=== PATIENT | male | born 1955 | race African-American/Black ===

== ENCOUNTER 2017-11-16 10:09 | Inpatient (IN) | payer OTHER ==
[2017-11-16 11:12] VITALS: BMI 22.6
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
[2017-11-16] MEDS ORDERED: MAGNESIUM CITRATE 300 ML BOTTLE PO PRN (12:49)
[2017-11-16] MEDS ORDERED: LOPERAMIDE HCL 2 MG CAPSULE PO PRN (12:49)
[2017-11-16] MEDS ORDERED: MAGNESIUM HYDROX 2400MG/30ML ORAL SUSPENSION 30 ML CUP PO PRN (12:49)
[2017-11-16] MEDS ORDERED: IBUPROFEN 400 MG TABLET (FP) PO PRN (12:49)
[2017-11-16] MEDS ORDERED: chlordiazePOXIDE HCL 25 MG CAPSULE PO PRN (12:49)
[2017-11-16] MEDS ORDERED: guaiFENesin/D-METHORPHAN HB 10 ML UNIT-DOSE CUPS PO PRN (12:49)
[2017-11-16] MEDS ORDERED: MAG HYDROX/AL HYDROX/SIMETH 30 ML UNIT-DOSE CUP PO PRN (12:49)
[2017-11-16] MEDS ORDERED: P-EPHED 60MG/TRIPROLIDI 2.5MG TABLET PO PRN (12:49)
[2017-11-16] MEDS ORDERED: ACETAMINOPHEN 325 MG TABLET (FP) PO PRN (12:49)
[2017-11-16] MEDS ORDERED: MENTHOL/PHENOL 1 EACH UD MM PRN (12:49)
[2017-11-16] MEDS ORDERED: NICOTINE POLACRILEX 2 MG GUM BUC PRN (12:49)
[2017-11-16] MEDS ORDERED: chlordiazePOXIDE HCL 25 MG CAPSULE PO ONE ×2 (12:55→15:45)
[2017-11-16] MEDS: GABAPENTIN 100 MG CAPSULE (FP) PO SCH ×2 (15:51→23:52)
[2017-11-16] MEDS: NICOTINE 14 MG/24 HOURS TOPICAL PATCH TD SCH (15:57)
[2017-11-16] MEDS ORDERED: INSULIN (NOVOLOG) ASPART 100 UNITS/ML 10ML VIAL ONE (17:15)
--- NOTE | 2017-11-16 17:33 | CONSULT ---
[facility] Psychiatric Consult - Data Date of interview: 11/16/17 Admission source: [facility] Identifying data: Pt is a 62 year old male with a history of substance abuse. This is patient's first admission to [facility]. Pt. admitted to for alcohol and crack dependence. Substance Abuse History: Following information confirmed with patient: moking Cessation. Smoking history: Current every day smoker. Have you smoked in the past 12 months: Yes. Aproximately how many cigarettes per day: 10. Hx Chewing Tobacco Use: No. Initiated information on smoking cessation: Yes. 'Breaking Loose' booklet given: 11/16/17. - Substance & Tx. History. Hx Alcohol Use: Yes (VODKA). Hx Substance Use: Yes (COCAINE). Substance Use Type: Alcohol, Cocaine. Hx Substance Use Treatment: Yes (LAST TX AT [facility]). Alcohol: Route: Oral Frequency: Daily. Amount used: 1 PINT VODKA Age of first use: 19. Date of Last Use: 11/13/17. Crack: Route: Smoking Frequency : Daily. Amount used: $50 Age of first use: 33. Date of Last Use: 11/13/17 Medical History: Diabetes, Hep C Psychiatric History: Pt. reports a diagnosis of schizophrenia. Reports seeing a psychiatrist for 13 years and is currently on the medication risperdal 2mg. Pt. reports last taking risperdal 2mg yesterday while at the other hospital. Pt. also states he is non compliant with his medications when using drugs. Pt. currently does not want to resume his medication. Pt. stated, " I do not want to crash by taking all these medications. i'm sleepy." Pt. denies h/o past psychiatric hospitalization and history of suicide attempt. Physical/Sexual Abuse/Trauma History: Pt. did not respond to this question. Additional Comment: Urine Drug Screen Results: AMANUEL-Cocaine, OPI-Opiates Mental Status Exam - Mental Status Exam Alert and Oriented to: Time, Place, Person Cognitive Function: Fair Patient Appearance: Unkempt Mood: Withdrawn Affect: Flat Patient Behavior: Sedated, Fatigued, Guarded Speech Pattern: Slurred Voice Loudness: Moderately Soft/Quiet Thought Process: Goal Oriented Thought Disorder: Not Present Hallucinations: Denies Suicidal Ideation: Denies Homicidal Ideation: Denies Insight/Judgement: Poor Sleep: Fair Appetite: Fair Muscle strength/Tone: Normal, Mild Hypertonicity Gait/Station: Other (Did not observe patient's gait as patient was laying in bed during interview.) Psychiatric Findings - Problem List ([place] 1, 2,3) (1) Alcohol dependence with uncomplicated withdrawal Current Visit: Yes Status: Acute (2) Cocaine dependence, uncomplicated Current Visit: Yes Status: Acute (3) Nicotine dependence Current Visit: Yes Status: Acute (4) Schizophrenia Current Visit: No Status: Suspected Comment: Self reports. - Initial Treatment Plan Initial Treatment Plan: Psychoeducation provided. Detox in progress. Pt. refuses to resume risperdal at this time.
[2017-11-16 17:35] LABS: MCH 28.9 pg (25.7-33.7); MCHC 32.4 g/dl (32.0-35.9); MEAN CELL VOLUME 89.3 fl (80-96); MEAN PLT VOLUME 8.2 fl (7.5-11.1); PLATELET COUNT 230 K/MM3 (134-434); RDW 14.2 % (11.9-15.9); WHITE BLOOD COUNT 4.9 K/mm3 (4.0-10.0)
[2017-11-16 17:41] LABS: ALBUMIN 3.4 g/dl (3.4-5.0); ANION GAP 8 (8-16); CALCIUM 8.8 mg/dL (8.5-10.1); CO2 26 mmol/L (21-32)
[2017-11-16 17:46] LABS: ALK PHOS 85 U/L (45-117); BILIRUBIN,TOTAL 0.6 mg/dL (0.2-1.0); CREATININE 0.8 mg/dL (0.7-1.3); SGOT/AST 86 U/L (15-37); SGPT/ALT 84 U/L (12-78); TOT PROT 7.3 g/dl (6.4-8.2)
[2017-11-16] MEDS: metFORMIN HCL 500 MG TABLET (FP) PO SCH (17:58)
[2017-11-16] MEDS: chlordiazePOXIDE HCL 25 MG CAPSULE PO SCH ×2 (17:58→23:52)
[2017-11-16] MEDS: INSULIN SLIDING SCALE (NOVOLOG) 1 VIAL SQ SCH (18:00)
[2017-11-16 18:30] LABS: GLUCOSE,RANDOM 302 mg/dL (74-106)
[2017-11-16] MEDS: THIAMINE HCL 100 MG TABLET (FP) PO SCH (23:52)
[2017-11-16] MEDS: INSULIN DETEMIR 100 UNITS/ML MDV SQ SCH (23:52)
[2017-11-17 01:23] LABS: URINE APPEARANCE CLEAR; URINE BILIRUBIN NEGATIVE (NEGATIVE); URINE BLOOD NEGATIVE (NEGATIVE); URINE COLOR YELLOW; URINE GLUCOSE (UA) 3+ (NEGATIVE); URINE KETONE NEGATIVE (NEGATIVE); URINE LEUK ESTERASE NEGATIVE (NEGATIVE); URINE NITRITE NEGATIVE (NEGATIVE); URINE PROTEIN NEGATIVE (NEGATIVE)
[2017-11-17] MEDS: GABAPENTIN 100 MG CAPSULE (FP) PO SCH ×3 (06:17→22:47)
[2017-11-17] MEDS: chlordiazePOXIDE HCL 25 MG CAPSULE PO SCH ×4 (06:45→22:47)
[2017-11-17] MEDS ORDERED: INSULIN (NOVOLOG) ASPART 100 UNITS/ML 10ML VIAL ONE ×2 (08:18→16:53)
[2017-11-17] MEDS: INSULIN SLIDING SCALE (NOVOLOG) 1 VIAL SQ SCH ×2 (08:19→17:28)
[2017-11-17] MEDS: metFORMIN HCL 500 MG TABLET (FP) PO SCH ×2 (08:19→17:28)
[2017-11-17 09:14] LABS: HIV 1 & 2 AB NEGATIVE; HIV 1 AGp24 NEGATIVE
--- NOTE | 2017-11-17 09:29 | PN ---
[facility] CIWA - CIWA Score Nausea/Vomitin-No Nausea/No Vomiting Muscle Tremors: 4-Moderate,w/Arms Extend Anxiety: 4-Mod. Anxious/Guarded Agitation: 4-Moderately Restless Paroxysmal Sweats: 3 Orientation: 0-Oriented Tacttile Disturbances: 0-None Auditory Disturbances: 0-None Visual Disturbances: 0-None Headache: 1-Very Mild CIWA-Ar Total Score: 16 BHS Progress Note (SOAP) Subjective: sweats shakes interrupted sleep agitation irritable Objective: 11/17/17 09:27 Vital Signs Temperature 97.3 F L 11/17/17 06:28 Pulse Rate 65 11/17/17 06:28 Respiratory Rate 16 11/17/17 06:28 Blood Pressure 110/50 11/17/17 06:28 O2 Sat by Pulse Oximetry (%) Laboratory Tests 11/16/17 11/16/17 11/16/17 11:33 14:00 14:00 WBC 4.9 RBC 4.19 Hgb 12.1 Hct 37.4 MCV 89.3 MCH 28.9 MCHC 32.4 RDW 14.2 Plt Count 230 MPV 8.2 Sodium Potassium Chloride Carbon Dioxide Anion Gap BUN Creatinine Creat Clearance w eGFR POC Glucometer 379 Random Glucose Calcium Total Bilirubin AST ALT Alkaline Phosphatase Total Protein Albumin Urine Color Urine Appearance Urine pH Ur Specific [place] Urine Protein Urine Glucose (UA) Urine Ketones Urine Blood Urine Nitrite Urine Bilirubin Urine Urobilinogen HIV 1&2 Antibody Screen Negative HIV P24 Antigen Negative 11/16/17 11/16/17 11/16/17 14:00 15:55 16:31 WBC RBC Hgb Hct MCV MCH MCHC RDW Plt Count MPV Sodium 141 Potassium 4.6 Chloride 107 Carbon Dioxide 26 Anion Gap 8 BUN 13 Creatinine 0.8 Creat Clearance w eGFR > 60 POC Glucometer 280 302 Random Glucose 302 H* Calcium 8.8 Total Bilirubin 0.6 AST 86 H ALT 84 H Alkaline Phosphatase 85 Total Protein 7.3 Albumin 3.4 Urine Color Urine Appearance Urine pH Ur Specific [place] Urine Protein Urine Glucose (UA) Urine Ketones Urine Blood Urine Nitrite Urine Bilirubin Urine Urobilinogen HIV 1&2 Antibody Screen HIV P24 Antigen 11/16/17 11/16/17 11/17/17 21:54 23:37 07:21 WBC RBC Hgb Hct MCV MCH MCHC RDW Plt Count MPV Sodium Potassium Chloride Carbon Dioxide Anion Gap BUN Creatinine Creat Clearance w eGFR POC Glucometer 132 260 Random Glucose Calcium Total Bilirubin AST ALT Alkaline Phosphatase Total Protein Albumin Urine Color Yellow Urine Appearance Clear Urine pH 5.0 Ur Specific [place] 1.030 Urine Protein Negative Urine Glucose (UA) 3+ H Urine Ketones Negative Urine Blood Negative Urine Nitrite Negative Urine Bilirubin Negative Urine Urobilinogen 2.0 HIV 1&2 Antibody Screen HIV P24 Antigen [id number] lying in bed no acute distress Assessment: 11/17/17 09:29 withdrawal sx Plan: continue detox increase fluids labs pending
[2017-11-17] MEDS: PRENATAL VITAMINS W/ FOLIC ACID TABLET (FP) PO SCH (10:29)
[2017-11-17] MEDS: NICOTINE 14 MG/24 HOURS TOPICAL PATCH TD SCH (10:29)
[2017-11-17] MEDS: ASPIRIN 81 MG CHEWABLE TABLETS PO SCH (10:29)
[2017-11-17] MEDS ORDERED: FLU VACCINE QUAD 60 MCG/0.5 ML (MDV 17-18) IM ONE (12:00)
[2017-11-17 13:12] LABS: URINE LEUK ESTERASE Negative (NEGATIVE)
--- NOTE | 2017-11-17 16:37 | EKG ---
Test Reason : Blood Pressure : / mmHG Vent. Rate : 070 BPM Atrial Rate : 070 BPM P-R Int : 146 ms QRS Dur : 088 ms QT Int : 412 ms P-R-T Axes : 076 -53 084 degrees QTc Int : 444 ms NORMAL SINUS RHYTHM POSSIBLE LEFT ATRIAL ENLARGEMENT LEFT ANTERIOR FASCICULAR BLOCK ABNORMAL ECG NO PREVIOUS ECGS AVAILABLE Confirmed by MARYAM YANEZ MD ([id number]) on 11/17/2017 4:36:45 PM Referred By: Confirmed By:MARYAM YANEZ MD
[2017-11-17] MEDS: INSULIN DETEMIR 100 UNITS/ML MDV SQ SCH (22:46)
[2017-11-17] MEDS: THIAMINE HCL 100 MG TABLET (FP) PO SCH (22:47)
[2017-11-18] MEDS: metFORMIN HCL 500 MG TABLET (FP) PO SCH ×2 (06:08→17:15)
[2017-11-18] MEDS: GABAPENTIN 100 MG CAPSULE (FP) PO SCH ×3 (06:08→23:39)
[2017-11-18] MEDS: chlordiazePOXIDE HCL 25 MG CAPSULE PO SCH ×2 (06:09→10:12)
[2017-11-18] MEDS ORDERED: DIPHENOXYLATE 2.5/ATROPINE.025 1 COMBO TABLET PO ONE (07:00)
[2017-11-18] MEDS: INSULIN SLIDING SCALE (NOVOLOG) 1 VIAL SQ SCH ×2 (07:17→17:15)
[2017-11-18] MEDS: ASPIRIN 81 MG CHEWABLE TABLETS PO SCH (10:12)
[2017-11-18] MEDS: PRENATAL VITAMINS W/ FOLIC ACID TABLET (FP) PO SCH (10:12)
[2017-11-18] MEDS: NICOTINE 14 MG/24 HOURS TOPICAL PATCH TD SCH (10:14)
[2017-11-18] MEDS ORDERED: INSULIN (NOVOLOG) ASPART 100 UNITS/ML 10ML VIAL ONE (11:57)
--- NOTE | 2017-11-18 12:07 | PN ---
[facility] CIWA - CIWA Score Nausea/Vomitin-No Nausea/No Vomiting Muscle Tremors: 3 Anxiety: 3 Agitation: 3 Paroxysmal Sweats: 3 Orientation: 0-Oriented Tacttile Disturbances: 0-None Auditory Disturbances: 0-None Visual Disturbances: 0-None Headache: 0-None Present CIWA-Ar Total Score: 12 S Progress Note (SOAP) Subjective: irritable sweats diarrhea agitation Objective: 11/18/17 12:06 Vital Signs Temperature 96.6 F L 11/18/17 10:14 Pulse Rate 69 11/18/17 10:14 Respiratory Rate 18 11/18/17 10:14 Blood Pressure 117/56 11/18/17 10:14 O2 Sat by Pulse Oximetry (%) Laboratory Tests 11/16/17 11/16/17 11/16/17 11:33 14:00 14:00 WBC 4.9 RBC 4.19 Hgb 12.1 Hct 37.4 MCV 89.3 MCH 28.9 MCHC 32.4 RDW 14.2 Plt Count 230 MPV 8.2 Sickle Cell Screen Sodium Potassium Chloride Carbon Dioxide Anion Gap BUN Creatinine Creat Clearance w eGFR POC Glucometer 379 Random Glucose Calcium Total Bilirubin AST ALT Alkaline Phosphatase Total Protein Albumin Urine Color Urine Appearance Urine pH Ur Specific [place] Urine Protein Urine Glucose (UA) Urine Ketones Urine Blood Urine Nitrite Urine Bilirubin Urine Urobilinogen Ur Leukocyte Esterase RPR Titer HIV 1&2 Antibody Screen Negative HIV P24 Antigen Negative 11/16/17 11/16/17 11/16/17 14:00 14:00 15:55 WBC RBC Hgb Hct MCV MCH MCHC RDW Plt Count MPV Sickle Cell Screen Sodium 141 Potassium 4.6 Chloride 107 Carbon Dioxide 26 Anion Gap 8 BUN 13 Creatinine 0.8 Creat Clearance w eGFR > 60 POC Glucometer 280 Random Glucose 302 H* Calcium 8.8 Total Bilirubin 0.6 AST 86 H ALT 84 H Alkaline Phosphatase 85 Total Protein 7.3 Albumin 3.4 Urine Color Urine Appearance Urine pH Ur Specific [place] Urine Protein Urine Glucose (UA) Urine Ketones Urine Blood Urine Nitrite Urine Bilirubin Urine Urobilinogen Ur Leukocyte Esterase RPR Titer Nonreactive HIV 1&2 Antibody Screen HIV P24 Antigen 11/16/17 11/16/17 11/16/17 16:31 21:54 23:37 WBC RBC Hgb Hct MCV MCH MCHC RDW Plt Count MPV Sickle Cell Screen Sodium Potassium Chloride Carbon Dioxide Anion Gap BUN Creatinine Creat Clearance w eGFR POC Glucometer 302 132 Random Glucose Calcium Total Bilirubin AST ALT Alkaline Phosphatase Total Protein Albumin Urine Color Yellow Urine Appearance Clear Urine pH 5.0 Ur Specific [place] 1.030 Urine Protein Negative Urine Glucose (UA) 3+ H Urine Ketones Negative Urine Blood Negative Urine Nitrite Negative Urine Bilirubin Negative Urine Urobilinogen 2.0 Ur Leukocyte Esterase Negative RPR Titer HIV 1&2 Antibody Screen HIV P24 Antigen 11/17/17 11/17/17 11/17/17 06:00 07:21 16:50 WBC RBC Hgb Hct MCV MCH MCHC RDW Plt Count MPV Sickle Cell Screen Negative Sodium Potassium Chloride Carbon Dioxide Anion Gap BUN Creatinine Creat Clearance w eGFR POC Glucometer 260 265 Random Glucose Calcium Total Bilirubin AST ALT Alkaline Phosphatase Total Protein Albumin Urine Color Urine Appearance Urine pH Ur Specific [place] Urine Protein Urine Glucose (UA) Urine Ketones Urine Blood Urine Nitrite Urine Bilirubin Urine Urobilinogen Ur Leukocyte Esterase RPR Titer HIV 1&2 Antibody Screen HIV P24 Antigen 11/17/17 11/18/17 23:18 06:00 WBC RBC Hgb Hct MCV MCH MCHC RDW Plt Count MPV Sickle Cell Screen Sodium Potassium Chloride Carbon Dioxide Anion Gap BUN Creatinine Creat Clearance w eGFR POC Glucometer 175 187 Random Glucose Calcium Total Bilirubin AST ALT Alkaline Phosphatase Total Protein Albumin Urine Color Urine Appearance Urine pH Ur Specific [place] Urine Protein Urine Glucose (UA) Urine Ketones Urine Blood Urine Nitrite Urine Bilirubin Urine Urobilinogen Ur Leukocyte Esterase RPR Titer HIV 1&2 Antibody Screen HIV P24 Antigen aaox3 ambulating no acute distress Assessment: 11/18/17 12:06 withdrawal sx Plan: continue detox increase fluids anti-diarrhea medication prn
[2017-11-18] MEDS ORDERED: INSULIN (NOVOLOG) ASPART 100 UNITS/ML 10ML VIAL SQ ONE (13:30)
[2017-11-18] MEDS: chlordiazePOXIDE 5 MG CAPSULE PO SCH (17:22)
[2017-11-18] MEDS: INSULIN DETEMIR 100 UNITS/ML MDV SQ SCH (23:39)
[2017-11-18] MEDS: THIAMINE HCL 100 MG TABLET (FP) PO SCH (23:39)
[2017-11-19] MEDS: INSULIN SLIDING SCALE (NOVOLOG) 1 VIAL SQ SCH ×4 (01:40→22:53)
[2017-11-19] MEDS: chlordiazePOXIDE 5 MG CAPSULE PO SCH ×3 (06:07→10:25)
[2017-11-19] MEDS: GABAPENTIN 100 MG CAPSULE (FP) PO SCH ×3 (06:08→22:53)
[2017-11-19] MEDS: metFORMIN HCL 500 MG TABLET (FP) PO SCH ×2 (07:09→17:29)
[2017-11-19] MEDS: PRENATAL VITAMINS W/ FOLIC ACID TABLET (FP) PO SCH (10:23)
[2017-11-19] MEDS: ASPIRIN 81 MG CHEWABLE TABLETS PO SCH (10:23)
[2017-11-19] MEDS: NICOTINE 14 MG/24 HOURS TOPICAL PATCH TD SCH (10:24)
--- NOTE | 2017-11-19 12:25 | PN ---
BHS Progress Note (SOAP) Subjective: Sweating,interrupted sleep,restless Objective: 11/19/17 12:24 Vital Signs - 8 hr 11/19/17 06:13 Temperature 98.4 F Pulse Rate 62 Respiratory 16 Rate Blood Pressure 116/54 Laboratory Last Values WBC 4.9 K/mm3 (4.0-10.0) 11/16/17 14:00 RBC 4.19 M/mm3 (4.00-5.60) 11/16/17 14:00 Hgb 12.1 GM/dL (11.7-16.9) 11/16/17 14:00 Hct 37.4 % (35.4-49) 11/16/17 14:00 MCV 89.3 fl (80-96) 11/16/17 14:00 MCH 28.9 pg (25.7-33.7) 11/16/17 14:00 MCHC 32.4 g/dl (32.0-35.9) 11/16/17 14:00 RDW 14.2 % (11.9-15.9) 11/16/17 14:00 Plt Count 230 K/MM3 (134-434) 11/16/17 14:00 MPV 8.2 fl (7.5-11.1) 11/16/17 14:00 Sickle Cell Screen Negative (NEGATIVE) 11/17/17 06:00 Sodium 141 mmol/L (136-145) 11/16/17 14:00 Potassium 4.6 mmol/L (3.5-5.1) 11/16/17 14:00 Chloride 107 mmol/L (98-107) 11/16/17 14:00 Carbon Dioxide 26 mmol/L (21-32) 11/16/17 14:00 Anion Gap 8 (8-16) 11/16/17 14:00 BUN 13 mg/dL (7-18) 11/16/17 14:00 Creatinine 0.8 mg/dL (0.7-1.3) 11/16/17 14:00 Creat Clearance w eGFR > 60 (>60) 11/16/17 14:00 POC Glucometer 234 UNITS (80-120) 11/18/17 23:37 Random Glucose 302 mg/dL (74-106) H* 11/16/17 14:00 Calcium 8.8 mg/dL (8.5-10.1) 11/16/17 14:00 Total Bilirubin 0.6 mg/dL (0.2-1.0) 11/16/17 14:00 AST 86 U/L (15-37) H 11/16/17 14:00 ALT 84 U/L (12-78) H 11/16/17 14:00 Alkaline Phosphatase 85 U/L (45-117) 11/16/17 14:00 Total Protein 7.3 g/dl (6.4-8.2) 11/16/17 14:00 Albumin 3.4 g/dl (3.4-5.0) 11/16/17 14:00 Urine Color Yellow 11/16/17 21:54 Urine Appearance Clear 11/16/17 21:54 Urine pH 5.0 (5.0-8.0) 11/16/17 21:54 Ur Specific [place] 1.030 (1.001-1.035) 11/16/17 21:54 Urine Protein Negative (NEGATIVE) 11/16/17 21:54 Urine Glucose (UA) 3+ (NEGATIVE) H 11/16/17 21:54 Urine Ketones Negative (NEGATIVE) 11/16/17 21:54 Urine Blood Negative (NEGATIVE) 11/16/17 21:54 Urine Nitrite Negative (NEGATIVE) 11/16/17 21:54 Urine Bilirubin Negative (NEGATIVE) 11/16/17 21:54 Urine Urobilinogen 2.0 mg/dL (0.2-1.0) 11/16/17 21:54 Ur Leukocyte Esterase Negative (NEGATIVE) 11/16/17 21:54 RPR Titer Nonreactive (NONREACTIVE) 11/16/17 14:00 HIV 1&2 Antibody Screen Negative 11/16/17 14:00 HIV P24 Antigen Negative 11/16/17 14:00 labs noted Assessment: 11/19/17 12:25 Withdrawal sx. Plan: Continue detox
[2017-11-19] MEDS ORDERED: INSULIN (NOVOLOG) ASPART 100 UNITS/ML 10ML VIAL ONE (13:47)
[2017-11-19] MEDS: chlordiazePOXIDE HCL 10 MG CAPSULE PO SCH ×3 (17:28→22:53)
[2017-11-19] MEDS: THIAMINE HCL 100 MG TABLET (FP) PO SCH (22:53)
[2017-11-19] MEDS: INSULIN DETEMIR 100 UNITS/ML MDV SQ SCH (22:53)
[2017-11-20] MEDS: GABAPENTIN 100 MG CAPSULE (FP) PO SCH ×3 (06:38→22:38)
[2017-11-20] MEDS: metFORMIN HCL 500 MG TABLET (FP) PO SCH ×2 (06:39→17:32)
[2017-11-20] MEDS: chlordiazePOXIDE HCL 10 MG CAPSULE PO SCH ×2 (07:37→11:46)
[2017-11-20] MEDS ORDERED: INSULIN (NOVOLOG) ASPART 100 UNITS/ML 10ML VIAL ONE ×2 (07:41→11:26)
[2017-11-20] MEDS: INSULIN SLIDING SCALE (NOVOLOG) 1 VIAL SQ SCH ×4 (07:41→22:38)
[2017-11-20] MEDS: NICOTINE 14 MG/24 HOURS TOPICAL PATCH TD SCH (11:44)
[2017-11-20] MEDS: PRENATAL VITAMINS W/ FOLIC ACID TABLET (FP) PO SCH (11:45)
[2017-11-20] MEDS: ASPIRIN 81 MG CHEWABLE TABLETS PO SCH (11:45)
--- NOTE | 2017-11-20 14:47 | PN ---
BHS Progress Note (SOAP) Subjective: Sweating,anxiety,tremors,interrupted sleep,restless Objective: 11/20/17 14:46 Vital Signs - 8 hr 11/20/17 11/20/17 11/20/17 07:01 11:49 14:11 Temperature 98.3 F 97.7 F 98 F Pulse Rate 65 73 80 Respiratory 16 18 18 Rate Blood Pressure 108/51 114/60 129/66 Laboratory Last Values WBC 4.9 K/mm3 (4.0-10.0) 11/16/17 14:00 RBC 4.19 M/mm3 (4.00-5.60) 11/16/17 14:00 Hgb 12.1 GM/dL (11.7-16.9) 11/16/17 14:00 Hct 37.4 % (35.4-49) 11/16/17 14:00 MCV 89.3 fl (80-96) 11/16/17 14:00 MCH 28.9 pg (25.7-33.7) 11/16/17 14:00 MCHC 32.4 g/dl (32.0-35.9) 11/16/17 14:00 RDW 14.2 % (11.9-15.9) 11/16/17 14:00 Plt Count 230 K/MM3 (134-434) 11/16/17 14:00 MPV 8.2 fl (7.5-11.1) 11/16/17 14:00 Sickle Cell Screen Negative (NEGATIVE) 11/17/17 06:00 Sodium 141 mmol/L (136-145) 11/16/17 14:00 Potassium 4.6 mmol/L (3.5-5.1) 11/16/17 14:00 Chloride 107 mmol/L (98-107) 11/16/17 14:00 Carbon Dioxide 26 mmol/L (21-32) 11/16/17 14:00 Anion Gap 8 (8-16) 11/16/17 14:00 BUN 13 mg/dL (7-18) 11/16/17 14:00 Creatinine 0.8 mg/dL (0.7-1.3) 11/16/17 14:00 Creat Clearance w eGFR > 60 (>60) 11/16/17 14:00 POC Glucometer 356 UNITS (80-120) 11/20/17 11:16 Random Glucose 302 mg/dL (74-106) H* 11/16/17 14:00 Calcium 8.8 mg/dL (8.5-10.1) 11/16/17 14:00 Total Bilirubin 0.6 mg/dL (0.2-1.0) 11/16/17 14:00 AST 86 U/L (15-37) H 11/16/17 14:00 ALT 84 U/L (12-78) H 11/16/17 14:00 Alkaline Phosphatase 85 U/L (45-117) 11/16/17 14:00 Total Protein 7.3 g/dl (6.4-8.2) 11/16/17 14:00 Albumin 3.4 g/dl (3.4-5.0) 11/16/17 14:00 Urine Color Yellow 11/16/17 21:54 Urine Appearance Clear 11/16/17 21:54 Urine pH 5.0 (5.0-8.0) 11/16/17 21:54 Ur Specific [place] 1.030 (1.001-1.035) 11/16/17 21:54 Urine Protein Negative (NEGATIVE) 11/16/17 21:54 Urine Glucose (UA) 3+ (NEGATIVE) H 11/16/17 21:54 Urine Ketones Negative (NEGATIVE) 11/16/17 21:54 Urine Blood Negative (NEGATIVE) 11/16/17 21:54 Urine Nitrite Negative (NEGATIVE) 11/16/17 21:54 Urine Bilirubin Negative (NEGATIVE) 11/16/17 21:54 Urine Urobilinogen 2.0 mg/dL (0.2-1.0) 11/16/17 21:54 Ur Leukocyte Esterase Negative (NEGATIVE) 11/16/17 21:54 RPR Titer Nonreactive (NONREACTIVE) 11/16/17 14:00 HIV 1&2 Antibody Screen Negative 11/16/17 14:00 HIV P24 Antigen Negative 11/16/17 14:00 labs noted Assessment: 11/20/17 14:46 Withdrawal sx. Plan: Continue detox
[2017-11-20] MEDS: INSULIN DETEMIR 100 UNITS/ML MDV SQ SCH (22:38)
[2017-11-21] MEDS ORDERED: INSULIN (NOVOLOG) ASPART 100 UNITS/ML 10ML VIAL ONE ×4 (07:57→16:48)
[2017-11-21] MEDS: GABAPENTIN 100 MG CAPSULE (FP) PO SCH ×3 (08:04→21:46)
[2017-11-21] MEDS: metFORMIN HCL 500 MG TABLET (FP) PO SCH ×2 (08:04→16:49)
[2017-11-21] MEDS: INSULIN SLIDING SCALE (NOVOLOG) 1 VIAL SQ SCH ×4 (08:04→21:44)
--- NOTE | 2017-11-21 09:16 | PN ---
S Progress Note (SOAP) Subjective: interrupted sleep, lbp, mild diarrhea Objective: 11/21/17 09:14 Vital Signs Temperature 98.2 F 11/21/17 06:27 Pulse Rate 80 11/21/17 06:27 Respiratory Rate 18 11/21/17 06:27 Blood Pressure 134/74 11/21/17 06:27 O2 Sat by Pulse Oximetry (%) Laboratory Tests 11/16/17 11/16/17 11/16/17 11:33 14:00 14:00 WBC 4.9 RBC 4.19 Hgb 12.1 Hct 37.4 MCV 89.3 MCH 28.9 MCHC 32.4 RDW 14.2 Plt Count 230 MPV 8.2 Sickle Cell Screen Sodium Potassium Chloride Carbon Dioxide Anion Gap BUN Creatinine Creat Clearance w eGFR POC Glucometer 379 Random Glucose Calcium Total Bilirubin AST ALT Alkaline Phosphatase Total Protein Albumin Urine Color Urine Appearance Urine pH Ur Specific [place] Urine Protein Urine Glucose (UA) Urine Ketones Urine Blood Urine Nitrite Urine Bilirubin Urine Urobilinogen Ur Leukocyte Esterase RPR Titer HIV 1&2 Antibody Screen Negative HIV P24 Antigen Negative 11/16/17 11/16/17 11/16/17 14:00 14:00 15:55 WBC RBC Hgb Hct MCV MCH MCHC RDW Plt Count MPV Sickle Cell Screen Sodium 141 Potassium 4.6 Chloride 107 Carbon Dioxide 26 Anion Gap 8 BUN 13 Creatinine 0.8 Creat Clearance w eGFR > 60 POC Glucometer 280 Random Glucose 302 H* Calcium 8.8 Total Bilirubin 0.6 AST 86 H ALT 84 H Alkaline Phosphatase 85 Total Protein 7.3 Albumin 3.4 Urine Color Urine Appearance Urine pH Ur Specific [place] Urine Protein Urine Glucose (UA) Urine Ketones Urine Blood Urine Nitrite Urine Bilirubin Urine Urobilinogen Ur Leukocyte Esterase RPR Titer Nonreactive HIV 1&2 Antibody Screen HIV P24 Antigen 11/16/17 11/16/17 11/16/17 16:31 21:54 23:37 WBC RBC Hgb Hct MCV MCH MCHC RDW Plt Count MPV Sickle Cell Screen Sodium Potassium Chloride Carbon Dioxide Anion Gap BUN Creatinine Creat Clearance w eGFR POC Glucometer 302 132 Random Glucose Calcium Total Bilirubin AST ALT Alkaline Phosphatase Total Protein Albumin Urine Color Yellow Urine Appearance Clear Urine pH 5.0 Ur Specific [place] 1.030 Urine Protein Negative Urine Glucose (UA) 3+ H Urine Ketones Negative Urine Blood Negative Urine Nitrite Negative Urine Bilirubin Negative Urine Urobilinogen 2.0 Ur Leukocyte Esterase Negative RPR Titer HIV 1&2 Antibody Screen HIV P24 Antigen 11/17/17 11/17/17 11/17/17 06:00 07:21 16:50 WBC RBC Hgb Hct MCV MCH MCHC RDW Plt Count MPV Sickle Cell Screen Negative Sodium Potassium Chloride Carbon Dioxide Anion Gap BUN Creatinine Creat Clearance w eGFR POC Glucometer 260 265 Random Glucose Calcium Total Bilirubin AST ALT Alkaline Phosphatase Total Protein Albumin Urine Color Urine Appearance Urine pH Ur Specific [place] Urine Protein Urine Glucose (UA) Urine Ketones Urine Blood Urine Nitrite Urine Bilirubin Urine Urobilinogen Ur Leukocyte Esterase RPR Titer HIV 1&2 Antibody Screen HIV P24 Antigen 11/17/17 11/18/17 11/18/17 23:18 06:00 11:53 WBC RBC Hgb Hct MCV MCH MCHC RDW Plt Count MPV Sickle Cell Screen Sodium Potassium Chloride Carbon Dioxide Anion Gap BUN Creatinine Creat Clearance w eGFR POC Glucometer 175 187 317 Random Glucose Calcium Total Bilirubin AST ALT Alkaline Phosphatase Total Protein Albumin Urine Color Urine Appearance Urine pH Ur Specific [place] Urine Protein Urine Glucose (UA) Urine Ketones Urine Blood Urine Nitrite Urine Bilirubin Urine Urobilinogen Ur Leukocyte Esterase RPR Titer HIV 1&2 Antibody Screen HIV P24 Antigen 11/18/17 11/18/17 11/19/17 16:30 23:37 05:46 WBC RBC Hgb Hct MCV MCH MCHC RDW Plt Count MPV Sickle Cell Screen Sodium Potassium Chloride Carbon Dioxide Anion Gap BUN Creatinine Creat Clearance w eGFR POC Glucometer 186 234 192 Random Glucose Calcium Total Bilirubin AST ALT Alkaline Phosphatase Total Protein Albumin Urine Color Urine Appearance Urine pH Ur Specific [place] Urine Protein Urine Glucose (UA) Urine Ketones Urine Blood Urine Nitrite Urine Bilirubin Urine Urobilinogen Ur Leukocyte Esterase RPR Titer HIV 1&2 Antibody Screen HIV P24 Antigen 11/19/17 11/19/17 11/20/17 11:36 16:34 06:06 WBC RBC Hgb Hct MCV MCH MCHC RDW Plt Count MPV Sickle Cell Screen Sodium Potassium Chloride Carbon Dioxide Anion Gap BUN Creatinine Creat Clearance w eGFR POC Glucometer 551 82 222 Random Glucose Calcium Total Bilirubin AST ALT Alkaline Phosphatase Total Protein Albumin Urine Color Urine Appearance Urine pH Ur Specific [place] Urine Protein Urine Glucose (UA) Urine Ketones Urine Blood Urine Nitrite Urine Bilirubin Urine Urobilinogen Ur Leukocyte Esterase RPR Titer HIV 1&2 Antibody Screen HIV P24 Antigen 11/20/17 11/20/17 11/21/17 11:16 16:25 06:35 WBC RBC Hgb Hct MCV MCH MCHC RDW Plt Count MPV Sickle Cell Screen Sodium Potassium Chloride Carbon Dioxide Anion Gap BUN Creatinine Creat Clearance w eGFR POC Glucometer 356 240 310 Random Glucose Calcium Total Bilirubin AST ALT Alkaline Phosphatase Total Protein Albumin Urine Color Urine Appearance Urine pH Ur Specific [place] Urine Protein Urine Glucose (UA) Urine Ketones Urine Blood Urine Nitrite Urine Bilirubin Urine Urobilinogen Ur Leukocyte Esterase RPR Titer HIV 1&2 Antibody Screen HIV P24 Antigen pt aox3 in nad, lying in bed 11/21/17 09:16 withdrawal sx's dm2 Assessment: 11/21/17 09:15 cont. detox increase fluids insulin coverage imodium prn d/c in am
[2017-11-21] MEDS: NICOTINE 14 MG/24 HOURS TOPICAL PATCH TD SCH (10:42)
[2017-11-21] MEDS: PRENATAL VITAMINS W/ FOLIC ACID TABLET (FP) PO SCH (10:42)
[2017-11-21] MEDS: ASPIRIN 81 MG CHEWABLE TABLETS PO SCH (10:43)
[2017-11-21] MEDS: THIAMINE HCL 100 MG TABLET (FP) PO SCH (21:46)
[2017-11-21] MEDS: INSULIN DETEMIR 100 UNITS/ML MDV SQ SCH (21:47)
[2017-11-21 21:53] VITALS: TEMP 98.2
[2017-11-22 06:07] VITALS: BP 121/57; PULSE 70
[2017-11-22] MEDS: INSULIN SLIDING SCALE (NOVOLOG) 1 VIAL SQ SCH (08:05)
[2017-11-22] MEDS: GABAPENTIN 100 MG CAPSULE (FP) PO SCH (08:05)
[2017-11-22] MEDS: metFORMIN HCL 500 MG TABLET (FP) PO SCH (08:16)
[2017-11-22] MEDS: PRENATAL VITAMINS W/ FOLIC ACID TABLET (FP) PO SCH (09:12)
[2017-11-22] MEDS: ASPIRIN 81 MG CHEWABLE TABLETS PO SCH (09:12)
--- NOTE | 2017-11-22 12:01 | DS ---
[facility] Detox Discharge Summary Admission Date: 11/16/17 - History Present History: Alcohol Dependence, Cocaine Dependence Pertinent Past History: GERD DMT2 Hepatitis C - Physical Exam Results Vital Signs: Vital Signs Temperature 98.2 F 11/22/17 06:00 Pulse Rate 70 11/22/17 06:00 Respiratory Rate 18 11/22/17 06:00 Blood Pressure 121/57 11/22/17 06:00 O2 Sat by Pulse Oximetry (%) Pertinent Admission Physical Exam Findings: Withdrawal symptoms Laboratory Tests 11/16/17 11/16/17 11/16/17 11:33 14:00 14:00 WBC 4.9 RBC 4.19 Hgb 12.1 Hct 37.4 MCV 89.3 MCH 28.9 MCHC 32.4 RDW 14.2 Plt Count 230 MPV 8.2 Sickle Cell Screen Sodium Potassium Chloride Carbon Dioxide Anion Gap BUN Creatinine Creat Clearance w eGFR POC Glucometer 379 Random Glucose Calcium Total Bilirubin AST ALT Alkaline Phosphatase Total Protein Albumin Urine Color Urine Appearance Urine pH Ur Specific [place] Urine Protein Urine Glucose (UA) Urine Ketones Urine Blood Urine Nitrite Urine Bilirubin Urine Urobilinogen Ur Leukocyte Esterase RPR Titer HIV 1&2 Antibody Screen Negative HIV P24 Antigen Negative 11/16/17 11/16/17 11/16/17 14:00 14:00 15:55 WBC RBC Hgb Hct MCV MCH MCHC RDW Plt Count MPV Sickle Cell Screen Sodium 141 Potassium 4.6 Chloride 107 Carbon Dioxide 26 Anion Gap 8 BUN 13 Creatinine 0.8 Creat Clearance w eGFR > 60 POC Glucometer 280 Random Glucose 302 H* Calcium 8.8 Total Bilirubin 0.6 AST 86 H ALT 84 H Alkaline Phosphatase 85 Total Protein 7.3 Albumin 3.4 Urine Color Urine Appearance Urine pH Ur Specific [place] Urine Protein Urine Glucose (UA) Urine Ketones Urine Blood Urine Nitrite Urine Bilirubin Urine Urobilinogen Ur Leukocyte Esterase RPR Titer Nonreactive HIV 1&2 Antibody Screen HIV P24 Antigen 11/16/17 11/16/17 11/16/17 16:31 21:54 23:37 WBC RBC Hgb Hct MCV MCH MCHC RDW Plt Count MPV Sickle Cell Screen Sodium Potassium Chloride Carbon Dioxide Anion Gap BUN Creatinine Creat Clearance w eGFR POC Glucometer 302 132 Random Glucose Calcium Total Bilirubin AST ALT Alkaline Phosphatase Total Protein Albumin Urine Color Yellow Urine Appearance Clear Urine pH 5.0 Ur Specific [place] 1.030 Urine Protein Negative Urine Glucose (UA) 3+ H Urine Ketones Negative Urine Blood Negative Urine Nitrite Negative Urine Bilirubin Negative Urine Urobilinogen 2.0 Ur Leukocyte Esterase Negative RPR Titer HIV 1&2 Antibody Screen HIV P24 Antigen 11/17/17 11/17/17 11/17/17 06:00 07:21 16:50 WBC RBC Hgb Hct MCV MCH MCHC RDW Plt Count MPV Sickle Cell Screen Negative Sodium Potassium Chloride Carbon Dioxide Anion Gap BUN Creatinine Creat Clearance w eGFR POC Glucometer 260 265 Random Glucose Calcium Total Bilirubin AST ALT Alkaline Phosphatase Total Protein Albumin Urine Color Urine Appearance Urine pH Ur Specific [place] Urine Protein Urine Glucose (UA) Urine Ketones Urine Blood Urine Nitrite Urine Bilirubin Urine Urobilinogen Ur Leukocyte Esterase RPR Titer HIV 1&2 Antibody Screen HIV P24 Antigen 11/17/17 11/18/17 11/18/17 23:18 06:00 11:53 WBC RBC Hgb Hct MCV MCH MCHC RDW Plt Count MPV Sickle Cell Screen Sodium Potassium Chloride Carbon Dioxide Anion Gap BUN Creatinine Creat Clearance w eGFR POC Glucometer 175 187 317 Random Glucose Calcium Total Bilirubin AST ALT Alkaline Phosphatase Total Protein Albumin Urine Color Urine Appearance Urine pH Ur Specific [place] Urine Protein Urine Glucose (UA) Urine Ketones Urine Blood Urine Nitrite Urine Bilirubin Urine Urobilinogen Ur Leukocyte Esterase RPR Titer HIV 1&2 Antibody Screen HIV P24 Antigen 11/18/17 11/18/17 11/19/17 16:30 23:37 05:46 WBC RBC Hgb Hct MCV MCH MCHC RDW Plt Count MPV Sickle Cell Screen Sodium Potassium Chloride Carbon Dioxide Anion Gap BUN Creatinine Creat Clearance w eGFR POC Glucometer 186 234 192 Random Glucose Calcium Total Bilirubin AST ALT Alkaline Phosphatase Total Protein Albumin Urine Color Urine Appearance Urine pH Ur Specific [place] Urine Protein Urine Glucose (UA) Urine Ketones Urine Blood Urine Nitrite Urine Bilirubin Urine Urobilinogen Ur Leukocyte Esterase RPR Titer HIV 1&2 Antibody Screen HIV P24 Antigen 11/19/17 11/19/17 11/20/17 11:36 16:34 06:06 WBC RBC Hgb Hct MCV MCH MCHC RDW Plt Count MPV Sickle Cell Screen Sodium Potassium Chloride Carbon Dioxide Anion Gap BUN Creatinine Creat Clearance w eGFR POC Glucometer 551 82 222 Random Glucose Calcium Total Bilirubin AST ALT Alkaline Phosphatase Total Protein Albumin Urine Color Urine Appearance Urine pH Ur Specific [place] Urine Protein Urine Glucose (UA) Urine Ketones Urine Blood Urine Nitrite Urine Bilirubin Urine Urobilinogen Ur Leukocyte Esterase RPR Titer HIV 1&2 Antibody Screen HIV P24 Antigen 11/20/17 11/20/17 11/21/17 11:16 16:25 06:35 WBC RBC Hgb Hct MCV MCH MCHC RDW Plt Count MPV Sickle Cell Screen Sodium Potassium Chloride Carbon Dioxide Anion Gap BUN Creatinine Creat Clearance w eGFR POC Glucometer 356 240 310 Random Glucose Calcium Total Bilirubin AST ALT Alkaline Phosphatase Total Protein Albumin Urine Color Urine Appearance Urine pH Ur Specific [place] Urine Protein Urine Glucose (UA) Urine Ketones Urine Blood Urine Nitrite Urine Bilirubin Urine Urobilinogen Ur Leukocyte Esterase RPR Titer HIV 1&2 Antibody Screen HIV P24 Antigen 11/21/17 11/22/17 11:28 07:53 WBC RBC Hgb Hct MCV MCH MCHC RDW Plt Count MPV Sickle Cell Screen Sodium Potassium Chloride Carbon Dioxide Anion Gap BUN Creatinine Creat Clearance w eGFR POC Glucometer 291 66 Random Glucose Calcium Total Bilirubin AST ALT Alkaline Phosphatase Total Protein Albumin Urine Color Urine Appearance Urine pH Ur Specific [place] Urine Protein Urine Glucose (UA) Urine Ketones Urine Blood Urine Nitrite Urine Bilirubin Urine Urobilinogen Ur Leukocyte Esterase RPR Titer HIV 1&2 Antibody Screen HIV P24 Antigen Labs noted - Treatment Hospital Course: Detox Protocol Followed, Detoxed Safely, Responded well, Discharged Condition Good - Medication Discharge Medications: Ambulatory Orders Aspirin [ASA -] 81 mg PO DAILY 11/16/17 Gabapentin [Neurontin -] 100 mg PO Q8H 11/16/17 Insulin Glargine,Hum.rec.anlog [Lantus Solostar PEN (NF)] 0 units SQ HS Insulin Glargine,Hum.rec.anlog [Lantus] 50 unit SQ HS 11/16/17 Metformin HCl [Glucophage -] 500 mg PO BID 11/16/17 Risperidone [Risperdal] 2 mg PO DAILY 11/16/17 - Diagnosis (1) Alcohol dependence with uncomplicated withdrawal Status: Acute (2) Cocaine dependence, uncomplicated Status: Chronic (3) GERD (gastroesophageal reflux disease) Status: Chronic Qualifiers: Esophagitis presence: without esophagitis Qualified Code(s): K21.9 - Gastro -esophageal reflux disease without esophagitis (4) History of hepatitis C Status: Chronic (5) Nicotine dependence Status: Chronic Qualifiers: Nicotine product type: cigarettes Substance use status: uncomplicated Qualified Code(s): F17.210 - Nicotine dependence, cigarettes, uncomplicated (6) Type 2 diabetes mellitus Status: Acute Qualifiers: Diabetes mellitus complication status: without complication - AMA Did Patient Leave Against Medical Advice: No (F/U with PCP within 1 week)
== END 2017-11-22 09:38 | disposition home or self-care (01) | DRG 774 ==
LOC: YASAS 10:09 → Y6N 12:23
PROVIDERS: ADMIT Internal Medicine; ATTEND Internal Medicine
PROC: HZ2ZZZZ Detoxification Services for Substance Abuse Treatment (ICD-10-PCS; principal; 2017-11-16)
DX: F10.230 Alcohol dependence with withdrawal, uncomplicated (principal); F14.20 Cocaine dependence, uncomplicated; F17.210 Nicotine dependence, cigarettes, uncomplicated; F20.9 Schizophrenia, unspecified; K21.9 Gastro-esophageal reflux disease without esophagitis; E11.9 Type 2 diabetes mellitus without complications; Z79.4 Long term (current) use of insulin; Z86.19 Personal history of other infectious and parasitic diseases
CPT/HCPCS: 36415; 80053; 81003; 85027; 85660; 86593; 87389; 93005; 93010